=== PATIENT | male | born 1995 ===

== ENCOUNTER → 2018-12-14 18:58 | Outpatient (REF) | payer OTHER, SELFPAY ==
[2018-12-14 21:15] LABS: Urine N gonorrhoeae NOT DETECTED
[2018-12-14 21:29] LABS: Urine Chlamydia NOT DETECTED
== END ==
LOC: LAB 18:58
PROVIDERS: Visit Provider Family Medicine Geriatric Medicine
DX: Z11.3 Encounter for screening for infections with a predominantly sexual mode of transmission (principal)
CPT/HCPCS: 87491; 87591